=== PATIENT | female | born 1985 | race Caucasian/White ===

== ENCOUNTER 2016-11-18 15:23 | Emergency (ER) | payer OTHER, MEDICAID ==
[2016-11-18 15:28] VITALS: BMI 20.9
[2016-11-18 15:47] LABS: BILIRUBIN,URINE NEGATIVE (NEGATIVE); BLOOD/HEMOGLOBIN,URINE NEGATIVE (NEGATIVE); GLUCOSE, URINE NEGATIVE (NEGATIVE); KETONES,URINE NEGATIVE (NEGATIVE); LEUKOCYTE ESTERASE ,URINE 3+ (NEGATIVE); NITRITES,URINE NEGATIVE (NEGATIVE); PROTEIN,URINE NEGATIVE (NEGATIVE); UROBILINOGEN,URINE NORMAL (NORMAL)
--- NOTE | 2016-11-18 15:52 | DR.GENAD ---
HPI - PCP Primary Care Physician: RICH - Complaint/Symptoms Chief Complaint:: PT C/O ABD PAIN, BACK PAIN, AND DIZZINESS THAT STARTED THIS AM. PT STATES SHE HAS HAS A RECENT UTI 2 WEEKS AGO AND WAS TAKING MACROBID. - Source History Provided: Patient - Mode of Arrival Mode of Arrival: Ambulatory - Timing Onset of Chief Complaint: 11/18/16 PMH - PMH Past Medical History: Yes Past Medical History: Kidney Stones, Seizures Past Surgical History: Yes Surgical History: Lithotripsy - Family History History of Family Medical Conditions: Yes Family Medical History: Hypertension - Social History Does any household member use tobacco: No Alcohol Use: None Do you use any recreational Drugs:: No Lives With: Family Lives Where: Home - infectious screening In the last 2 months have you had wt loss of >10#?: NO Have you had fever, night sweats or hemotysis?: No Have you traveled outside the country in the last 6 months?: No Isolation: Standard ROS - Review of Systems Eyes: No Symptoms Reported ENTM: No Symptoms Reported Respiratoy: No Symptoms Reported Cardiovascular: No Symptoms Reported Gastrointestinal/Abdominal: Abdominal Pain, Other (suprapubic) Genitourinary: Frequency Neurological: No Symptoms Reported Musculoskeletal: Left (flank) Integumentary: No Symptoms Reported Hematologic/Lymphatic: No Symptoms Reported Endocrine: No Symptoms Reported Psychiatric: No Symptoms Reported All Other Systems: Reviewed and Negative PE - Vital Signs Vitals: Temperature 98.1 F Pulse Rate [Left Radial] 80 Pulse Rate [Standing] 107 Pulse Rate [Sitting] 93 Pulse Rate [Lying] 98 Pulse Rate 92 Respiratory Rate 18 Blood Pressure [Right Arm] 108/77 Blood Pressure [Left Arm] 148/78 Blood Pressure [Standing] 100/73 Blood Pressure [Sitting] 101/70 Blood Pressure [Lying] 107/73 Blood Pressure 95/71 O2 Sat by Pulse Oximetry 100 - General Limitations: No Limitations General Appearance: Alert, In No Apparent Distress - Head Head Exam: Normal Inspection, Atraumatic - Eyes Eye exam: Normal Appearance, PERRL, EOMI - ENT ENT Exam: Normal Exam External Ear Exam: Normal External Inspection TM/Canal Exam: Bilateral Normal Nose Exam: Normal Nose Exam, Sinus Tenderness Mouth Exam: Normal Inspection Throat Exam: Normal Inspection - Neck Neck Exam: Normal Inspection - Chest Chest Inspection: Normal Inspection - Respiratory Respiratory Exam: Normal Lung Sounds Bilat Respiratory Exam: Bilateral Clear to Auscultation - Cardiovascular Cardiovascular Exam: Regular Rate, Normal Rhythm - Abdominal Exam Abdominal Exam: Normal Inspection Abdominal Tenderness: Suprapubic - Extremities Extremities Exam: Normal Inspection, Full ROM - Back Back Exam: Normal Inspection - Neurologic Neurological Exam: Alert, Oriented X3, CN II-XII Intact - Psychiatric Psychiatric Exam: Normal Affect - Skin Skin Exam: Warm, Dry, Intact ROR - Labs Reviewed Laboratory Results Reviewed?: Yes (Urine: 3+ leukocyes) Result Diagrams: 11/18/16 16:00 11/18/16 16:00 Laboratory: WBC 6.6 X10^3/uL (3.6-10.0) 11/18/16 16:00 RBC 4.62 X10^6/uL (3.5-5.4) 11/18/16 16:00 Hgb 14.7 g/dL (12.0-16.0) 11/18/16 16:00 Hct 42.6 % (36.0-47.0) 11/18/16 16:00 MCV 92.2 fL (80.0-100.0) 11/18/16 16:00 MCH 31.7 pg (27.0-34.0) 11/18/16 16:00 MCHC 34.4 g/dL (33.0-35.0) 11/18/16 16:00 RDW 13.7 % (11.6-16.5) 11/18/16 16:00 Plt Count 253 X10^3/uL (150.0-450.0) 11/18/16 16:00 MPV 8.1 fL (7.4-11.0) 11/18/16 16:00 Neut % 63.9 % (42.0-75.0) 11/18/16 16:00 Lymph % 23.9 % (21.0-51.0) 11/18/16 16:00 [place] % 6.8 % (0.0-13.0) 11/18/16 16:00 Eos % 4.5 % (0.9-2.9) H 11/18/16 16:00 Baso % 0.9 % (0.2-1.0) 11/18/16 16:00 Neut # 4.2 x10^3/uL (2.2-4.8) 11/18/16 16:00 Lymph # 1.6 X10^3/uL (1.3-2.9) 11/18/16 16:00 [place] # 0.5 x10^3/uL (0.3-0.8) 11/18/16 16:00 Eos # 0.3 x10^3/uL (0.0-0.2) H 11/18/16 16:00 Baso # 0.1 X10^3/uL (0.0-0.1) 11/18/16 16:00 Absolute Nucleated RBC 0.0 /100WBC 11/18/16 16:00 Sodium 143 mmol/L (136-145) 11/18/16 16:00 Corrected Sodium TNP 11/18/16 16:00 Potassium 4.7 mmol/L (3.5-5.1) 11/18/16 16:00 Chloride 106 mmol/L (98-107) 11/18/16 16:00 Carbon Dioxide 29.4 mmol/L (21-32) 11/18/16 16:00 BUN 11 mg/dL (7-18) 11/18/16 16:00 Creatinine 0.95 mg/dL (0.55-1.02) 11/18/16 16:00 Est GFR (MDRD) Af Amer > 60 (>60) 11/18/16 16:00 Est GFR (MDRD) Non-Af > 60 (>60) 11/18/16 16:00 Glucose 89 mg/dL (65-99) 11/18/16 16:00 Calcium 8.8 mg/dL (8.5-10.1) 11/18/16 16:00 C-Reactive Protein 1.50 mg/L (0-3.0) 11/18/16 16:00 Specimen Type Clean catch urine 11/18/16 15:42 Urine Color Yellow (YELLOW) 11/18/16 15:42 Urine Appearance Slightly hazy (CLEAR) 11/18/16 15:42 Urine pH 8.0 (5.0 - 8.0) 11/18/16 15:42 Ur Specific [place] 1.010 (1.000-1.030) 11/18/16 15:42 Urine Protein Negative (NEGATIVE) 11/18/16 15:42 Urine Glucose (UA) Negative (NEGATIVE) 11/18/16 15:42 Urine Ketones Negative (NEGATIVE) 11/18/16 15:42 Urine Occult Blood Negative (NEGATIVE) 11/18/16 15:42 Urine Nitrite Negative (NEGATIVE) 11/18/16 15:42 Urine Bilirubin Negative (NEGATIVE) 11/18/16 15:42 Urine Urobilinogen Normal (NORMAL) 11/18/16 15:42 Ur Leukocyte Esterase 3+ (NEGATIVE) 11/18/16 15:42 Urine RBC Negative /HPF (NEGATIVE) 11/18/16 15:42 Urine WBC 2 - 5 /HPF (NEGATIVE) 11/18/16 15:42 Ur Squamous Epith Cells Many /HPF (NEGATIVE) 11/18/16 15:42 Urine Bacteria Negative /HPF (NEGATIVE) 11/18/16 15:42 Ur Culture Indicated? No/not indicated 11/18/16 15:42 - Diagnosis Discharge Problem: UTI (urinary tract infection) Qualifiers: Urinary tract infection type: acute cystitis Hematuria presence: without hematuria Qualified Code(s): N30.00 - Acute cystitis without hematuria - Discharge Plan Condition: Stable - Follow ups/Referrals Follow ups/Referrals: CAMRON RICH [Primary Care Provider] - 3 days - Instructions
[2016-11-18 15:53] LABS: COLOR,URINE YELLOW (YELLOW)
[2016-11-18] MEDS ORDERED: NS 1000 ML 1,000 ML IV ONE (15:53)
[2016-11-18] MEDS ORDERED: TORADOL 30 MG VIAL IVP ONE (15:53)
[2016-11-18 15:54] LABS: APPEARANCE,URINE SLIGHTLY HAZY (CLEAR)
[2016-11-18 15:55] LABS: BACTERIA,URINE NEGATIVE /HPF (NEGATIVE); RBC,URINE NEGATIVE /HPF (NEGATIVE); SQUAMOUS EPITHELIAL CELL,UR MANY /HPF (NEGATIVE)
[2016-11-18] MEDS ORDERED: NS 1000 ML 1,000 ML ONE (15:55)
[2016-11-18 16:10] LABS: BASOPHILS # (AUTO) 0.1 X10^3/uL (0.0-0.1); BASOPHILS % (AUTO) 0.9 % (0.2-1.0); EOSINOPHILS # (AUTO) 0.3 x10^3/uL (0.0-0.2); EOSINOPHILS % (AUTO) 4.5 % (0.9-2.9); HEMATOCRIT 42.6 % (36.0-47.0); HEMOGLOBIN 14.7 g/dL (12.0-16.0); LYMPHOCYTES # (AUTO) 1.6 X10^3/uL (1.3-2.9); LYMPHOCYTES % (AUTO) 23.9 % (21.0-51.0); MEAN CORPUSCULAR HEMOGLOBIN 31.7 pg (27.0-34.0); MEAN CORPUSCULAR HGB CONC 34.4 g/dL (33.0-35.0); MEAN CORPUSCULAR VOLUME 92.2 fL (80.0-100.0); MEAN PLATELET VOLUME 8.1 fL (7.4-11.0); MONOCYTES # (AUTO) 0.5 x10^3/uL (0.3-0.8); MONOCYTES % (AUTO) 6.8 % (0.0-13.0); NEUTROPHILS # (AUTO) 4.2 x10^3/uL (2.2-4.8); NEUTROPHILS % (AUTO) 63.9 % (42.0-75.0); PLATELET COUNT 253 X10^3/uL (150.0-450.0); RED BLOOD COUNT 4.62 X10^6/uL (3.5-5.4); RED CELL DISTRIBUTION WIDTH 13.7 % (11.6-16.5); WHITE BLOOD COUNT 6.6 X10^3/uL (3.6-10.0)
[2016-11-18] MEDS ORDERED: TORADOL 30 MG VIAL ONE (16:14)
[2016-11-18 16:17] LABS: BLOOD UREA NITROGEN 11 mg/dL (7-18); CALCIUM 8.8 mg/dL (8.5-10.1); CARBON DIOXIDE 29.4 mmol/L (21-32); CHLORIDE 106 mmol/L (98-107); CREATININE 0.95 mg/dL (0.55-1.02); GLUCOSE 89 mg/dL (65-99); SODIUM 143 mmol/L (136-145); eGFR BLACK RACES > 60 (>60); eGFR NON BLACK RACES > 60 (>60)
[2016-11-18 16:48] VITALS: BP 108/77
== END 2016-11-18 17:14 | disposition home or self-care (01) ==
LOC: ER 15:32
DX: N30.00 Acute cystitis without hematuria (principal)
CPT/HCPCS: 36415; 80048; 81001; 85025; 86140; 96365; 96374; 99282; 99283; A4222; J1885

== ENCOUNTER 2016-12-19 07:50 | Emergency (ER) | payer OTHER, MEDICAID ==
[2016-12-19 08:01] VITALS: BP 103/71; BMI 20.9
--- NOTE | 2016-12-19 08:19 | DR.GENAD ---
HPI - PCP Primary Care Physician: CAMRON RICH - Complaint/Symptoms Chief Complaint:: BACK PAIN, CAN'T KEEP FOOD DOWN Self Treatment fo Chief Complaint: TOOK IBUPROFEN AT HOME THIS AM. SYMPTOMS STARTED AT 5AM. PT STATES SHE HAD A UTI ABOUT A MONTH AGO - Source History Provided: Patient - Mode of Arrival Mode of Arrival: Ambulatory - Timing Onset of Chief Complaint: 12/19/16 <KASH BELLE - Last Filed: 12/19/16 08:14> - Complaint/Symptoms Chief Complaint Doctors Comments: Patient denies any trauma or history of back pain. Awakened this am with back pain. She denies fever or dysuria. <MADDIE SCOTT - Last Filed: 12/19/16 09:27> PMH - PMH Past Medical History: Yes Past Medical History: Kidney Stones, Seizures Past Surgical History: Yes Surgical History: Lithotripsy - Family History History of Family Medical Conditions: No Family Medical History: Hypertension - Social History Does patient currently use any type of tobacco product: No Have you used tobacco products in the last 12 months: No Type of Tobacco Use: None Alcohol Use: None Do you use any recreational Drugs:: No - infectious screening In the last 2 months have you had wt loss of >10#?: NO Have you had fever, night sweats or hemotysis?: No Have you traveled outside the country in the last 6 months?: No Isolation: Standard <KASH BELLE - Last Filed: 12/19/16 08:14> ROS - Review of Systems Eyes: No Symptoms Reported ENTM: No Symptoms Reported Respiratoy: No Symptoms Reported Cardiovascular: No Symptoms Reported Gastrointestinal/Abdominal: No Symptoms Reported Genitourinary: No Symptoms Reported Neurological: No Symptoms Reported Musculoskeletal: No Symptoms Reported Integumentary: No Symptoms Reported Hematologic/Lymphatic: No Symptoms Reported Endocrine: No Symptoms Reported Psychiatric: No Symptoms Reported All Other Systems: Reviewed and Negative <MADDIE SCOTT - Last Filed: 12/19/16 09:27> PE - General Limitations: No Limitations General Appearance: Alert, In No Apparent Distress - Head Head Exam: Normal Inspection, Atraumatic - Eyes Eye exam: Normal Appearance, PERRL, EOMI - ENT ENT Exam: Normal Exam, Normal Oropharynx External Ear Exam: Normal External Inspection TM/Canal Exam: Bilateral Normal Nose Exam: Normal Nose Exam Mouth Exam: Normal Inspection Throat Exam: Normal Inspection - Neck Neck Exam: Normal Inspection - Chest Chest Inspection: Normal Inspection - Respiratory Respiratory Exam: Normal Lung Sounds Bilat Respiratory Exam: Bilateral Clear to Auscultation - Cardiovascular Cardiovascular Exam: Regular Rate, Normal Rhythm - Abdominal Exam Abdominal Exam: Normal Inspection, Normal Bowel Sounds Abdominal Tenderness: negative: RUQ, RLQ, LUQ, LLQ, Epigastrium, Suprapubic, Diffuse, Mild, Moderate, Severe, Other - Extremities Extremities Exam: Normal Inspection, Full ROM - Back Back Exam: Tenderness (mid lumbar) - Neurologic Neurological Exam: Alert, Oriented X3, CN II-XII Intact - Psychiatric Psychiatric Exam: Normal Affect, Normal Mood - Skin Skin Exam: Warm, Dry, Intact <MADDIE SCOTT - Last Filed: 12/19/16 09:27> - Vital Signs Vitals: Temperature 97.8 F Pulse Rate 108 Respiratory Rate 20 Blood Pressure [Right Arm] 108/77 Blood Pressure [Left Arm] 148/78 Blood Pressure [Standing] 100/73 Blood Pressure [Sitting] 101/70 Blood Pressure [Lying] 107/73 Blood Pressure 103/71 O2 Sat by Pulse Oximetry 98 (KASH BELLE) (MADDIE SCOTT) Course - Reevaluation 1st: Unchanged <MADDIE SCOTT - Last Filed: 12/19/16 09:27> ROR - Labs Reviewed Result Diagrams: 12/19/16 08:42 12/19/16 08:42 - XRAY XRAY Interpreted by: Radiologist (Acute abdominal series: Chest negative, lumbar : negative.) <MADDIE SCOTT - Last Filed: 12/19/16 09:27> - Labs Reviewed Laboratory: WBC 4.3 X10^3/uL (3.6-10.0) 12/19/16 08:42 RBC 4.66 X10^6/uL (3.5-5.4) 12/19/16 08:42 Hgb 15.0 g/dL (12.0-16.0) 12/19/16 08:42 Hct 42.9 % (36.0-47.0) 12/19/16 08:42 MCV 92.1 fL (80.0-100.0) 12/19/16 08:42 MCH 32.1 pg (27.0-34.0) 12/19/16 08:42 MCHC 34.8 g/dL (33.0-35.0) 12/19/16 08:42 RDW 13.0 % (11.6-16.5) 12/19/16 08:42 Plt Count 203 X10^3/uL (150.0-450.0) 12/19/16 08:42 MPV 8.7 fL (7.4-11.0) 12/19/16 08:42 Neut % 56.1 % (42.0-75.0) 12/19/16 08:42 Lymph % 25.0 % (21.0-51.0) 12/19/16 08:42 [place] % 8.7 % (0.0-13.0) 12/19/16 08:42 Eos % 9.3 % (0.9-2.9) H 12/19/16 08:42 Baso % 0.9 % (0.2-1.0) 12/19/16 08:42 Neut # 2.4 x10^3/uL (2.2-4.8) 12/19/16 08:42 Lymph # 1.1 X10^3/uL (1.3-2.9) L 12/19/16 08:42 [place] # 0.4 x10^3/uL (0.3-0.8) 12/19/16 08:42 Eos # 0.4 x10^3/uL (0.0-0.2) H 12/19/16 08:42 Baso # 0.0 X10^3/uL (0.0-0.1) 12/19/16 08:42 Absolute Nucleated RBC 0.0 /100WBC 12/19/16 08:42 Sodium 142 mmol/L (136-145) 12/19/16 08:42 Corrected Sodium TNP 12/19/16 08:42 Potassium 3.9 mmol/L (3.5-5.1) 12/19/16 08:42 Chloride 107 mmol/L (98-107) 12/19/16 08:42 Carbon Dioxide 25.7 mmol/L (21-32) 12/19/16 08:42 BUN 9 mg/dL (7-18) 12/19/16 08:42 Creatinine 0.92 mg/dL (0.55-1.02) 12/19/16 08:42 Est GFR (MDRD) Af Amer > 60 (>60) 12/19/16 08:42 Est GFR (MDRD) Non-Af > 60 (>60) 12/19/16 08:42 Glucose 72 mg/dL (65-99) 12/19/16 08:42 Calcium 9.0 mg/dL (8.5-10.1) 12/19/16 08:42 Corrected Calcium TNP 12/19/16 08:42 Total Bilirubin 0.20 mg/dL (0.2-1.0) 12/19/16 08:42 AST 17 Units/L (15-37) 12/19/16 08:42 ALT 23 Units/L (12-78) 12/19/16 08:42 Alkaline Phosphatase 80 Units/L (46-116) 12/19/16 08:42 Total Protein 7.5 g/dL (6.4-8.2) 12/19/16 08:42 Albumin 4.1 g/dL (3.4-5.0) 12/19/16 08:42 Globulin 3.4 g/dL (2.5-4.5) 12/19/16 08:42 Albumin/Globulin Ratio 1.2 Ratio (1.1-2.1) 12/19/16 08:42 Specimen Type Clean catch urine 12/19/16 08:16 Urine Color Straw (YELLOW) 12/19/16 08:16 Urine Appearance Clear (CLEAR) 12/19/16 08:16 Urine pH 6.5 (5.0 - 8.0) 12/19/16 08:16 Ur Specific [place] 1.010 (1.000-1.030) 12/19/16 08:16 Urine Protein Negative (NEGATIVE) 12/19/16 08:16 Urine Glucose (UA) Negative (NEGATIVE) 12/19/16 08:16 Urine Ketones Negative (NEGATIVE) 12/19/16 08:16 Urine Occult Blood Negative (NEGATIVE) 12/19/16 08:16 Urine Nitrite Negative (NEGATIVE) 12/19/16 08:16 Urine Bilirubin Negative (NEGATIVE) 12/19/16 08:16 Urine Urobilinogen Normal (NORMAL) 12/19/16 08:16 Ur Leukocyte Esterase Negative (NEGATIVE) 12/19/16 08:16 Urine RBC None seen /HPF (NEGATIVE) 12/19/16 08:16 Urine WBC None seen /HPF (NEGATIVE) 12/19/16 08:16 Ur Squamous Epith Cells Many /HPF (NEGATIVE) 12/19/16 08:16 Amorphous Sediment Trace /HPF (NEGATIVE) 12/19/16 08:16 Urine Bacteria Negative /HPF (NEGATIVE) 12/19/16 08:16 Ur Culture Indicated? No/not indicated 12/19/16 08:16 <KASH BELLE - Last Filed: 12/19/16 08:14> <MADDIE SCOTT - Last Filed: 12/19/16 09:27> - Diagnosis Discharge Problem: Acute back pain Qualifiers: Back pain location: low back pain Back pain laterality: unspecified Sciatica presence: without sciatica Qualified Code(s): M54.5 - Low back pain - Discharge Plan Condition: Stable - Follow ups/Referrals Follow ups/Referrals: CAMRON RICH [Primary Care Provider] - 3 days - Instructions
[2016-12-19 08:24] LABS: BILIRUBIN,URINE NEGATIVE (NEGATIVE); BLOOD/HEMOGLOBIN,URINE NEGATIVE (NEGATIVE); GLUCOSE, URINE NEGATIVE (NEGATIVE); KETONES,URINE NEGATIVE (NEGATIVE); LEUKOCYTE ESTERASE ,URINE NEGATIVE (NEGATIVE); NITRITES,URINE NEGATIVE (NEGATIVE); PH,URINE 6.5 (5.0 - 8.0); PROTEIN,URINE NEGATIVE (NEGATIVE); UROBILINOGEN,URINE NORMAL (NORMAL)
[2016-12-19] MEDS ORDERED: TORADOL 30 MG VIAL IVP ONE (08:28)
[2016-12-19 08:36] LABS: AMORPHOUS SEDIMENT,UR TRACE /HPF (NEGATIVE); APPEARANCE,URINE CLEAR (CLEAR); BACTERIA,URINE NEGATIVE /HPF (NEGATIVE); COLOR,URINE STRAW (YELLOW); RBC,URINE NONE SEEN /HPF (NEGATIVE); SQUAMOUS EPITHELIAL CELL,UR MANY /HPF (NEGATIVE)
[2016-12-19] MEDS ORDERED: TORADOL 30 MG VIAL ONE (08:41)
[2016-12-19 09:07] LABS: BASOPHILS % (AUTO) 0.9 % (0.2-1.0); EOSINOPHILS # (AUTO) 0.4 x10^3/uL (0.0-0.2); EOSINOPHILS % (AUTO) 9.3 % (0.9-2.9); HEMATOCRIT 42.9 % (36.0-47.0); LYMPHOCYTES # (AUTO) 1.1 X10^3/uL (1.3-2.9); MEAN CORPUSCULAR HEMOGLOBIN 32.1 pg (27.0-34.0); MEAN CORPUSCULAR HGB CONC 34.8 g/dL (33.0-35.0); MEAN CORPUSCULAR VOLUME 92.1 fL (80.0-100.0); MEAN PLATELET VOLUME 8.7 fL (7.4-11.0); MONOCYTES # (AUTO) 0.4 x10^3/uL (0.3-0.8); MONOCYTES % (AUTO) 8.7 % (0.0-13.0); NEUTROPHILS # (AUTO) 2.4 x10^3/uL (2.2-4.8); NEUTROPHILS % (AUTO) 56.1 % (42.0-75.0); PLATELET COUNT 203 X10^3/uL (150.0-450.0); RED BLOOD COUNT 4.66 X10^6/uL (3.5-5.4); WHITE BLOOD COUNT 4.3 X10^3/uL (3.6-10.0)
[2016-12-19 09:21] LABS: ALANINE AMINOTRANSFERASE 23 Units/L (12-78); ALBUMIN 4.1 g/dL (3.4-5.0); ALKALINE PHOSPHATASE 80 Units/L (46-116); ASPARTATE AMINO TRANSFERASE 17 Units/L (15-37); BLOOD UREA NITROGEN 9 mg/dL (7-18); CARBON DIOXIDE 25.7 mmol/L (21-32); CHLORIDE 107 mmol/L (98-107); CREATININE 0.92 mg/dL (0.55-1.02); GLUCOSE 72 mg/dL (65-99); SODIUM 142 mmol/L (136-145); TOTAL PROTEIN 7.5 g/dL (6.4-8.2); eGFR BLACK RACES > 60 (>60); eGFR NON BLACK RACES > 60 (>60)
--- NOTE | 2016-12-19 10:45 | RAD ---
HISTORY: Back pain. Study: Lumbar spine three views Comparison: July 22, 2014 Findings: Normal alignment of the lumbar spine is maintained. The posterior elements appear unremarkable in t heir appearance. The disk space height is maintained without significant endplate sclerosis. No ev idence for acute fracture can be identified. IMPRESSION: 1. Negative exam. Reported By:
== END 2016-12-19 09:45 | disposition home or self-care (01) ==
LOC: ER 08:06
DX: M54.5 Low back pain (principal)
CPT/HCPCS: 36415; 72100; 80053; 81001; 85025; 96365; 96374; 99283; A4222; J1885